=== PATIENT | female | born 1955 | race Caucasian/White ===

== ENCOUNTER 2016-09-01 18:18 | Emergency (ER) | payer OTHER ==
[~2016-09-01] VITALS: Ht 149.9 cm; Wt 60.0 kg
[~2016-09-01 18:18] MED LIST: CYCL-36 PO; GABA800T PO; HYDRO25 PO; IBUP800 PO; MAGN30S PO; MELA3TAB19 PO; MILK140C PO; [UNRECOGNIZED DRUG - CODE]; [UNRECOGNIZED DRUG - CODE]
[2016-09-01 18:20] VITALS: BP 145/70; PULSE 77; RESP 16; TEMP 98.2; O2SAT 98
[2016-09-01] MEDS ORDERED: TEMA15CA PO (20:21)
[2016-09-01] MEDS ORDERED: DIAZ2TAB PO (20:21)
[2016-09-01] MEDS ORDERED: CEPH-459 PO (20:21)
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
[2016-09-01] MEDS ORDERED: BACITRACIN OINT 0.9 GM PKT TOPICAL ONE (21:00)
[2016-09-01 21:23] VITALS: BP 156/62; TEMP 98.5
== END 2016-09-01 21:29 | disposition home or self-care (01) ==
LOC: NED 18:18 → NEPD 18:18
DX: T23.362D Burn of third degree of back of left hand, subsequent encounter (principal); X08.8XXD Exposure to other specified smoke, fire and flames, subsequent encounter; B19.20 Unspecified viral hepatitis C without hepatic coma
CPT/HCPCS: 99282